=== PATIENT | female | born 1985 | race Caucasian/White ===

== ENCOUNTER → 2021-06-19 | Outpatient (CLI) | payer OTHER | END | disposition home or self-care (01) | LOC: LABWHC1 11:22 | PROVIDERS: ATTEND Otolaryngology | DX: J30.89 Other allergic rhinitis (principal) | CPT/HCPCS: 36415 ==

== ENCOUNTER → 2022-01-11 | Outpatient (CLI) | payer OTHER ==
--- NOTE | 2022-01-11 09:42 | USB ---
Reason for Exam: Clinical finding. Patient History: Menarche at age 17. First Full-Term at age 30. Patient has history of breast feeding. Patient used Hormonal Contraceptives for 10 years. Risk Values: Abril 5 year model risk: 0.3%. NCI Lifetime model risk: 10.4%. Technique: Method: Targeted. Findings: The area of palpable concern of the left breast, the axilla of the left breast and the retroareolar of the left breast were scanned. There is an elongated hypodense area with some internal echoes measuring 0.8 x 0.3 cm. Small source of infection should be considered. Patient reports this area is improving over the interval. Overall Assessment: Probably benign, BI-RAD 3 Management: Diagnostic Breast Ultrasound of the left breast in 3 months. A clinical breast exam by your physician is recommended on an annual basis and results should be correlated with mammographic findings. Patient should continue monthly self breast examination. If suspicious change should occur, such as interval growth, earlier ultrasound could be performed. Electronically signed and approved by: Sixto Ventura D.O. Radiologis
--- NOTE | 2022-01-11 09:52 | MM ---
Reason for Exam: Clinical finding. Baseline mammogram. Indicated Problems: Lump or thickening of the left side for 3 Day(s). Patient History: Menarche at age 17. First Full-Term at age 30. Patient has history of breast feeding. Patient used Hormonal Contraceptives for 10 years. Last menstrual period: 01/01/2022 Risk Values: Abril 5 year model risk: 0.3%. NCI Lifetime model risk: 10.4%. Prior Study Comparison: Patient's first Mammogram. Tissue Density: The breast tissue is heterogeneously dense. This may lower the sensitivity of mammography. Findings: Analyzed By CAD. Pattern appears symmetrical. A marker over the palpable abnormality at the 6:00 subareolar position is present. No underlying mammographic abnormality is evident. Additional evaluation with ultrasound is recommended. Overall Assessment: Incomplete: need additional imaging evaluation, BI-RAD 0 Management: Diagnostic Breast Ultrasound of the left breast. A clinical breast exam by your physician is recommended on an annual basis and results should be correlated with mammographic findings. This exam should not preclude additional follow-up of suspicious palpable abnormalities. Results were given to the patient verbally at the time of exam. Electronically signed and approved by: Sixto Ventura D.O. Radiologis
== END | disposition home or self-care (01) ==
LOC: RADMAMWWP 07:48
PROVIDERS: ATTEND Family Medicine
DX: N64.4 Mastodynia (principal)
CPT/HCPCS: 77062; 77066